=== PATIENT | female | born 1950 | race Caucasian/White ===

== ENCOUNTER 2018-07-12 20:28 | Emergency (ER) | payer MEDICARE, BC ==
[2018-07-12 21:08] LABS: #Eosinphils 0.3 thou/uL (0.0-0.7); #Lymphocytes 1.5 thou/uL (1.20-3.40); #Monocytes 0.4 thou/uL (0.11-0.59); #Neutrophils 3.4 thou/uL (1.40-6.50); %Basophils 0.4 % (0.0-1.0); %Eosinophils 5.5 % (0.0-10.0); %Lymphocytes 27.1 % (21.0-51.0); %Monocytes 6.4 % (0.0-10.0); %Neutrophils 60.6 % (42.0-75.0); Hemoglobin 13.6 g/dL (12.0-16.0); Mean Corpuscular HGB CONC 32.7 g/dL (32.0-36.0); Mean Corpuscular Volume 85.7 fL (78.0-98.0); Mean Platelet Volume 7.7 fL (7.4-10.4); Platelet Count 143 thou/uL (130-400); RBC Distribution Width 12.6 % (11.5-14.5); Red Blood Cell (RBC) Count 4.86 mill/uL (4.20-5.40); White Blood Cell (WBC) Count 5.6 thou/uL (4.8-10.8)
[2018-07-12 21:27] LABS: ALT (SGPT) 15 U/L (8-55); AST (SGOT) 20 U/L (5-34); Albumin 4.1 g/dL (3.4-4.8); Alkaline Phosphatase 64 U/L (40-150); Anion Gap 14 mmol/L (10-20); BUN (Urea Nitrogen) 18 mg/dL (9.8-20.1); Bilirubin, Total 0.6 mg/dL (0.2-1.2); Calc. Creatinine Clearance 0 mL/min (70-130); Calcium 9.7 mg/dL (7.8-10.44); Carbon Dioxide 27 mmol/L (23-31); Chloride 106 mmol/L (98-107); Estimated GFR-MDRD 48; Globulin 2.7 g/dL (2.4-3.5); Glucose 88 mg/dL (80-115); Potassium 3.4 mmol/L (3.5-5.1); Protein, Total 6.8 g/dL (6.0-8.3); Sodium 144 mmol/L (136-145)
--- NOTE | 2018-07-12 21:45 | CT ---
CT brain. Difficulty speaking. Noncontrast enhanced CT images of the brain obtained. Small areas of infarction seen in the right thalamus which appear to be old. No acute intracranial masses hemorrhages or strokes seen. There is abnormal density seen in the ethmoid and sphenoid sinuses. This may represent extensive sinu s disease. ENT consultation recommended. IMPRESSION: Ethmoid and sphenoid sinus disease.
[2018-07-12] MEDS ORDERED: Aspirin Chewable 81 MG TAB ONE (21:51)
[2018-07-12] MEDS ORDERED: Potassium Chloride 20 MEQ TAB ONE (21:51)
== END 2018-07-12 22:10 | disposition home or self-care (01) ==
LOC: NAV ERS 20:28
DX: G45.9 Transient cerebral ischemic attack, unspecified (principal); I10 Essential (primary) hypertension; E03.9 Hypothyroidism, unspecified
CPT/HCPCS: 36415; 36416; 70450; 80053; 84484; 85025; 93005; 94760

== ENCOUNTER 2018-07-20 10:35 | Emergency (ER) | payer MEDICARE, BC ==
--- NOTE | 2018-07-20 11:08 | CT ---
CT Brain WO Con: 07/20/2018 10:53 AM CLINICAL HISTORY: Dizziness and lightheadedness. IMAGING TECHNIQUE: Multiple CT images were obtained of the brain without IV contrast. COMPARISON: CT the brain dated July 12, 2018 FINDINGS: Infarct: There are remote lacunar infarcts involving the left globus pallidus and right thalamus. No acute infarct is demonstrated. Hemorrhage: None.. Hydrocephalus: None.. Basal cisterns: Normal.. Cerebral parenchyma: Normal.. Midline shift: None.. Cerebellum: Normal. Brainstem: Normal. OTHER: Calvarium: Intact.. Visualized Paranasal sinuses: There is marked mucosal thickening within the ethmoid air cells, spheno id sinus and visualized aspects of the left maxillary sinus that appears stable to the most recent comparison.. Extracranial soft tissues:Normal. IMPRESSION: 1. No acute intracranial abnormality. 2. Chronic ischemic change as above. 3. Significant ethmoid and sphenoid paranasal disease.
[2018-07-20 11:23] LABS: #Eosinphils 0.1 thou/uL (0.0-0.7); #Lymphocytes 1.3 thou/uL (1.20-3.40); #Monocytes 0.4 thou/uL (0.11-0.59); #Neutrophils 4.2 thou/uL (1.40-6.50); %Basophils 0.8 % (0.0-1.0); %Lymphocytes 22.1 % (21.0-51.0); %Monocytes 5.9 % (0.0-10.0); %Neutrophils 69.2 % (42.0-75.0); Hemoglobin 14.4 g/dL (12.0-16.0); Mean Corpuscular HGB CONC 32.4 g/dL (32.0-36.0); Mean Corpuscular Hemoglobin 27.8 pg (27.0-31.0); Mean Corpuscular Volume 85.8 fL (78.0-98.0); Mean Platelet Volume 8.7 fL (7.4-10.4); Platelet Count 166 thou/uL (130-400); RBC Distribution Width 12.8 % (11.5-14.5); Red Blood Cell (RBC) Count 5.18 mill/uL (4.20-5.40); White Blood Cell (WBC) Count 6.1 thou/uL (4.8-10.8)
[2018-07-20] MEDS ORDERED: Aspirin Chewable 81 MG TAB ONE ×2 (11:32→11:35)
[2018-07-20] MEDS ORDERED: Sodium Chloride 0.9% 1,000 ML ONE (11:32)
[2018-07-20 11:37] LABS: ALT (SGPT) 12 U/L (8-55); AST (SGOT) 19 U/L (5-34); Albumin 4.3 g/dL (3.4-4.8); Alkaline Phosphatase 66 U/L (40-150); Anion Gap 18 mmol/L (10-20); BUN (Urea Nitrogen) 21 mg/dL (9.8-20.1); Bilirubin, Total 0.7 mg/dL (0.2-1.2); Calc. Creatinine Clearance 0 mL/min (70-130); Calcium 9.7 mg/dL (7.8-10.44); Carbon Dioxide 26 mmol/L (23-31); Chloride 102 mmol/L (98-107); Estimated GFR-MDRD 25; Globulin 2.4 g/dL (2.4-3.5); Glucose 134 mg/dL (80-115); Potassium 3.6 mmol/L (3.5-5.1); Protein, Total 6.7 g/dL (6.0-8.3); Sodium 142 mmol/L (136-145)
--- NOTE | 2018-07-20 11:39 | RAD ---
RADIOGRAPH CHEST 1 VIEW: HISTORY: 68-year-old female with dyspnea. FINDINGS: There are no air space densities, pulmonary edema, pneumothorax, or cardiomegaly. The lateral costop hrenic angles are sharp. IMPRESSION: No acute cardiopulmonary findings. jn POS: TPC
[2018-07-20 12:05] LABS: Bilirubin Small (Negative); Blood, Urine Negative (Negative); Clarity Clear (Clear); Glucose, Urine (Dipstick) Negative (Negative); Leukocyte Trace (Negative); Nitrite Negative (Negative); Protein, Urine (Dipstick) 30 mg/dL (Neg-Trace); Specific Gravity, Urine 1.025 (1.005-1.030); Urobilinogen 0.2 mg/dL (0.2-1.0); pH, Urine 5.5 (5.0-9.0)
[2018-07-20 12:36] LABS: Bacteria/HPF Rare-Few HPF (None Seen); Crystals/HPF 1+ CA OXALATE HPF (Negative); RBC/HPF 0-3 HPF (0-3); WBC/HPF 0-3 HPF (0-3)
== END 2018-07-20 12:03 | disposition short-term general hospital (02) ==
LOC: NAV ERS 10:35
DX: R42 Dizziness and giddiness (principal); R53.1 Weakness; R94.31 Abnormal electrocardiogram [ECG] [EKG]; E03.9 Hypothyroidism, unspecified; I10 Essential (primary) hypertension; Z79.82 Long term (current) use of aspirin; Z79.899 Other long term (current) drug therapy
CPT/HCPCS: 70450; 71045; 80053; 81003; 81015; 83605; 84484; 85025; 93005; 94760; J7050

== ENCOUNTER 2018-09-25 15:27 | Emergency (ER) | payer MEDICARE ==
[~2018-09-25 15:27] MED LIST: Iopamidol 370 76% 100 ML VIAL ONE
[2018-09-25] MEDS ORDERED: Lorazepam 2 MG/ML VIAL ONE (15:33)
--- NOTE | 2018-09-25 15:59 | CT ---
EXAM: CT brain without contrast HISTORY: Altered mental status COMPARISON: 09/08/2018 TECHNIQUE: Multiple contiguous axial images were obtained and a CT of the brain without contrast. FINDINGS: There are scattered hypodensities in the subcortical and periventricular white matter consi stent with small vessel ischemic disease. There is no evidence of hydrocephalus, intracranial hemorrhage, or extra-axial fluid collection. The calvarium and overlying soft tissues are unremarkable. There is opacification of some of the ethm oid air cells. The mastoid air cells are well aerated. IMPRESSION: No evidence of acute intracranial abnormality
[2018-09-25 16:00] LABS: #Basophils 0.1 thou/uL (0.0-0.2); #Monocytes 0.4 thou/uL (0.11-0.59); #Neutrophils 9.6 thou/uL (1.40-6.50); %Basophils 0.6 % (0.0-1.0); %Eosinophils 0.1 % (0.0-10.0); %Lymphocytes 16.9 % (21.0-51.0); %Monocytes 3.5 % (0.0-10.0); Hemoglobin 13.2 g/dL (12.0-16.0); Mean Corpuscular HGB CONC 31.4 g/dL (32.0-36.0); Mean Corpuscular Hemoglobin 28.7 pg (27.0-31.0); Mean Corpuscular Volume 91.2 fL (78.0-98.0); Mean Platelet Volume 8.1 fL (7.4-10.4); Platelet Count 204 thou/uL (130-400); RBC Distribution Width 13.1 % (11.5-14.5); Red Blood Cell (RBC) Count 4.62 mill/uL (4.20-5.40); White Blood Cell (WBC) Count 12.1 thou/uL (4.8-10.8)
[2018-09-25 16:02] LABS: INR-International Normal Ratio 1.4; PTT 38.2 SEC (22.9-36.1); Prothrombin Time 17.3 SEC (12.0-14.7)
[2018-09-25 16:06] LABS: ALT (SGPT) 18 U/L (8-55); AST (SGOT) 19 U/L (5-34); Albumin 4.5 g/dL (3.4-4.8); Alkaline Phosphatase 65 U/L (40-150); Anion Gap 23 mmol/L (10-20); BUN (Urea Nitrogen) 44 mg/dL (9.8-20.1); Bilirubin, Total 0.9 mg/dL (0.2-1.2); Calc. Creatinine Clearance 0 mL/min (70-130); Calcium 10.6 mg/dL (7.8-10.44); Carbon Dioxide 19 mmol/L (23-31); Chloride 106 mmol/L (98-107); Estimated GFR-MDRD 29; Globulin 2.9 g/dL (2.4-3.5); Glucose 135 mg/dL (80-115); Potassium 4.2 mmol/L (3.5-5.1); Protein, Total 7.4 g/dL (6.0-8.3); Sodium 144 mmol/L (136-145)
--- NOTE | 2018-09-25 16:40 | CT ---
CTA Angio Head W WO Con W Perf History: Altered mental status Comparison: CT brain same day. MRI brain September 09, 2018 Findings: CT angiogram of the head and neck performed after the intravenous administration of contras t. 3-D rendering provided. Lung apices are clear. Small hypodensity posterior right lobe of the thyroid. Normal cervical spine alignment. Muscles: The vertebral arteries are codominant. Cervical vertebral arteries are patent. Right common carotid artery is patent. Per NASCET criteria no hemodynamically significant stenosis of the right internal carotid artery. The left common carotid artery is patent. Per NASCET criteria no hemodynamic significant stenosis of the internal carotid artery. [place] evaluation is limited due to the delayed phase of contrast. The posterior cerebral a rteries, middle cerebral arteries, and anterior cerebral arteries appear to be attenuated with beading. Age-indeterminate conclusion left A2 segment with adequate reconstitution of A3. Narrowed bi lateral middle cerebral arteries involving segments M1 and M2. Absence of the left P1 segment with contrast within the left P2-P3 segments. Impression: 1. Narrowed beaded [place] vessels including the posterior cerebral arteries, middle cerebra l arteries, anterior cerebral artery suggesting vasculitis. Conventional angiogram recommended. 2. Occluded left A2 segment with adequate peripheral vascular flow within A3. 3. Likely normal variant attenuated left P1 segment with P2 being fed by the posterior communicating artery. 4. Per NASCET criteria no hemodynamically significant stenosis within the internal carotid arteries. Code CR Dr. Yap
[2018-09-25 16:48] LABS: CK (CPK) 68 U/L (29-168)
[2018-09-25] MEDS ORDERED: Fosphenytoin Sodium 500 mg/10 ml Vial ONE ×2 (17:19→17:21)
[2018-09-25] MEDS ORDERED: Sodium Chloride 0.9% 100 ML ONE (17:26)
== END 2018-09-25 17:37 | disposition short-term general hospital (02) ==
LOC: NAV ERS 15:27
DX: I63.549 Cerebral infarction due to unspecified occlusion or stenosis of unspecified cerebellar artery (principal); R56.9 Unspecified convulsions; E03.9 Hypothyroidism, unspecified; Z86.73 Personal history of transient ischemic attack (TIA), and cerebral infarction without residual deficits; I10 Essential (primary) hypertension; Z79.82 Long term (current) use of aspirin; Z79.01 Long term (current) use of anticoagulants
CPT/HCPCS: 0042T; 36416; 70450; 70496; 70498; 80053; 82550; 84484; 85025; 85610; 85730; 93005; 96372; 96374; J2060; J3490; Q2009; Q9967

== ENCOUNTER 2018-09-28 17:10 | Inpatient (IN) | payer MEDICARE ==
[2018-09-28] MEDS ORDERED: Ondansetron ODT 4 MG TAB PO PRN (18:11)
[2018-09-28] MEDS ORDERED: Acetaminophen 325 MG TAB PO PRN (18:11)
[2018-09-28] MEDS ORDERED: cloNIDine 0.1 MG TAB PO PRN (18:18)
[2018-09-28] MEDS ORDERED: Loratadine 10 MG TAB PO PRN (18:32)
[2018-09-28] MEDS ORDERED: Senokot S 8.6-50 MG TAB PO PRN (18:32)
[2018-09-28] MEDS: Amlodipine 10 MG TAB PO SCH (20:28)
[2018-09-28] MEDS: Lisinopril 20 MG TAB PO SCH (20:28)
[2018-09-28] MEDS: levETIRAcetam 500 MG TAB PO SCH (20:29)
[2018-09-28] MEDS: Aggrenox 200-25mg CAP PO SCH (20:29)
[2018-09-28] MEDS: Apixaban 5 MG TAB PO SCH (20:29)
[2018-09-29 05:46] LABS: Anion Gap 13 mmol/L (10-20); BUN (Urea Nitrogen) 17 mg/dL (9.8-20.1); Calc. Creatinine Clearance 69 mL/min (70-130); Calcium 8.9 mg/dL (7.8-10.44); Carbon Dioxide 26 mmol/L (23-31); Chloride 108 mmol/L (98-107); Estimated GFR-MDRD 61; Glucose 77 mg/dL (80-115); Potassium 3.9 mmol/L (3.5-5.1); Sodium 143 mmol/L (136-145)
[2018-09-29 06:13] LABS: Thyroid Stimulating Hormone 2.4815 uIU/mL (0.35-4.94)
[2018-09-29 06:25] LABS: #Basophils 0.1 thou/uL (0.0-0.2); #Eosinphils 0.2 thou/uL (0.0-0.7); #Lymphocytes 1.3 thou/uL (1.20-3.40); #Monocytes 0.3 thou/uL (0.11-0.59); #Neutrophils 2.9 thou/uL (1.40-6.50); %Basophils 1.1 % (0.0-1.0); %Eosinophils 4.9 % (0.0-10.0); %Lymphocytes 26.8 % (21.0-51.0); %Monocytes 6.3 % (0.0-10.0); %Neutrophils 60.9 % (42.0-75.0); Hemoglobin 12.4 g/dL (12.0-16.0); Mean Corpuscular HGB CONC 32.7 g/dL (32.0-36.0); Mean Corpuscular Hemoglobin 28.7 pg (27.0-31.0); Mean Corpuscular Volume 87.7 fL (78.0-98.0); Mean Platelet Volume 9.2 fL (7.4-10.4); Platelet Count 114 thou/uL (130-400); RBC Distribution Width 12.4 % (11.5-14.5); Red Blood Cell (RBC) Count 4.31 mill/uL (4.20-5.40); White Blood Cell (WBC) Count 4.7 thou/uL (4.8-10.8)
[2018-09-29 06:33] LABS: Platelet Morphology Comment Appears Decreased
--- NOTE | 2018-09-29 09:01 | HP ---
SUBJECTIVE: The patient is a 68-year-old female with a past medical history of hypertension, hypothyroidism, hyperlipidemia with a recent CVA, who is readmitted to [facility] in [place] following seizures two days after being discharged from inpatient rehab. Couple of weeks ago, the patient suffered a stroke and then went to inpatient rehab with residual right-sided weakness, improved with therapy and was discharged home. She states that about two days after going home, she started becoming weak and then was shaking and found to have seizure-like activity. The patient had an MRI, which showed worsening of the left periventricular white matter infarctions. The patient was started on Keppra for seizures and began working with all therapy modalities. Speech Therapy saw the patient for some dysphagia, and she had a modified barium swallow today before being transferred to [place], which shows the need for continued speech therapy and nectar thick liquids with a regular texture diet. The patient is on Eliquis for anticoagulation and Aggrenox for the repeated stroke. The patient denies any other concerns at this time and is looking forward to beginning rehabilitation, so that she can transition back home. PAST MEDICAL HISTORY: 1. Hypertension. 2. Hyperlipidemia. 3. Hypothyroidism. 4. History of CVA. FAMILY HISTORY: Mother with history of hemorrhagic stroke. PAST SURGICAL HISTORY: 1. Appendectomy. 2. . 3. Hemorrhoidectomy. 4. Abdominal adhesion lysis. 5. Tonsillectomy. SOCIAL HISTORY: The patient denies tobacco, alcohol, or other drug use. MEDICATIONS: 1. Lisinopril 10 mg p.o. b.i.d. 2. Aggrenox 1 p.o. b.i.d. 3. B12 a 1000 mcg p.o. daily. 4. Keppra 500 mg p.o. b.i.d. 5. Clonidine 0.1 mg p.o. q.8 hours p.r.n. hypertension. 6. Atorvastatin 40 mg p.o. at bedtime. 7. Eliquis 5 mg p.o. b.i.d. 8. Amlodipine 10 mg p.o. daily. ALLERGIES: EGGS AND TDAP. REVIEW OF SYSTEMS: GENERAL: Negative for fever, chills, or night sweats. HEENT: Negative for sore throat, rhinorrhea, or nasal congestion. EYES: Negative for vision changes or eye pain. RESPIRATORY: Negative for cough, shortness of breath, or wheezing. CV: Negative for chest pain, palpitations, orthopnea, or PND. GI: Negative for nausea, vomiting, diarrhea, or constipation. : Negative for dysuria or polyuria. MUSCULOSKELETAL: Negative for joint pain or swelling. NEUROLOGIC: Negative for syncope and no new seizure since admission. PSYCHIATRIC: Negative for anxiety or depression. PHYSICAL EXAMINATION: VITAL SIGNS: Temp 98.2, pulse 69, respiration rate 18, O2 saturation 98% on room air, and blood pressure 134/69. GENERAL: The patient is awake, alert, oriented, in no acute distress. EYES: Pupils are equal, round, and reactive to light and accommodation, extraocular muscles intact. HEENT: Oropharynx and nasopharynx are without erythema or exudate. NECK: Supple without lymphadenopathy, thyromegaly, or bruits. CARDIOVASCULAR: Regular rate and rhythm without murmurs, gallops, or rubs. LUNGS: Clear to auscultation bilaterally without wheezing or rhonchi. ABDOMEN: Soft, nontender, nondistended. Bowel sounds present. EXTREMITIES: There is no clubbing, cyanosis, or edema. SKIN: Negative for jaundice or rashes. NEUROLOGIC: Cranial nerves 2 through 12 are grossly intact, deep tendon reflexes 2/4, and muscle strength appears to be 5/5 throughout all extremities. I am not able to appreciate the right-sided weakness that has been reported. PSYCHIATRIC: The patient displays appropriate mood and affect. LABORATORY DATA: Autoimmune panel shows an elevated thyroid peroxidase IgG at 162. ASSESSMENT AND PLAN: 1. Seizures: The patient will continue on Keppra. 2. Recent cerebrovascular accident: The patient will continue with speech therapy while at [facility]. PT and OT will be consulted. Continue Aggrenox and Eliquis. 3. Dysphagia: The patient is on nectar thick liquids and will continue to work with Therapy to see if diet can be advanced. 4. Hypertension: Continue home blood pressure medications. 5. Hypothyroidism: The patient is not currently on thyroid supplementation, but has an elevated thyroid peroxidase IgG. We will add a TSH and free T4 in the morning. 6. Hyperlipidemia: Continue lipid panel. 7. Deep venous thrombosis prophylaxis will be with Eliquis. Job ID: [id number] [facility]
[2018-09-29] MEDS: Lisinopril 20 MG TAB PO SCH ×2 (09:05→19:57)
[2018-09-29] MEDS: Multivitamin W/ Minerals 1 TAB PO SCH (09:05)
[2018-09-29] MEDS: Aggrenox 200-25mg CAP PO SCH ×2 (09:05→19:57)
[2018-09-29] MEDS: Cyanocobalamin (Vitamin B-12) 1,000 MCG TAB PO SCH (09:06)
[2018-09-29] MEDS: Atorvastatin Calcium 40 MG TAB PO SCH (09:06)
[2018-09-29] MEDS: levETIRAcetam 500 MG TAB PO SCH ×2 (09:06→19:57)
[2018-09-29] MEDS: Apixaban 5 MG TAB PO SCH ×2 (09:06→19:56)
[2018-09-29 12:34] LABS: Free T4 (Free Thyroxine) 0.89 ng/dL (0.70-1.48)
[2018-09-29] MEDS: Amlodipine 10 MG TAB PO SCH (19:56)
--- NOTE | 2018-09-30 08:47 | PRG ---
DATE OF SERVICE: 09/30/2018 SUBJECTIVE: The patient is a 68-year-old female, who is transferred to [place] for rehabilitation following a hospital stay for seizure activity, following a recent stroke. The patient states that her right lower extremity weakness seems to be improved. She has had no seizure since starting Keppra about a week ago. The patient notes her appetite is improving. OBJECTIVE: VITAL SIGNS: Temperature 98.2, pulse 80, respiration rate 16, O2 saturation 99% on room air, and blood pressure 139/63. GENERAL: The patient is awake, alert, oriented, in no acute distress. CARDIOVASCULAR: Regular rate and rhythm without murmurs, gallops, or rubs. LUNGS: Clear to auscultation bilaterally without wheezing or rhonchi. ABDOMEN: Soft, nontender, nondistended with bowel sounds present. EXTREMITIES: There is no clubbing, cyanosis, or edema. MUSCULOSKELETAL: The patient has full range of motion of all extremities and strength appears to be a 5/5. LABORATORY DATA: 1. CBC: WBCs 4.7, hemoglobin 12.4, hematocrit 37.8, and platelet count 114. 2. BMP: Sodium 143, potassium 3.9, chloride 108, bicarb 26, BUN 17, creatinine 0.92, glucose 77, and calcium 8.9. 3. Free T4 is 0.89 and TSH is 2.48. ASSESSMENT AND PLAN: 1. Seizures: We will continue Keppra. 2. Cerebrovascular accident: We will continue Eliquis and Aggrenox. The patient will continue to work with therapy services. 3. Dysphagia: The patient has nectar thick liquids, and speech therapy has been consulted. 4. Hypertension: Blood pressure is controlled. 5. Hyperlipidemia: Continue statin. 6. Hypothyroidism: The patient's TSH and T4 within the normal range. We will not start medication at this time. Job ID: [id number]
[2018-09-30] MEDS: Cyanocobalamin (Vitamin B-12) 1,000 MCG TAB PO SCH (08:50)
[2018-09-30] MEDS: Atorvastatin Calcium 40 MG TAB PO SCH (08:50)
[2018-09-30] MEDS: Lisinopril 20 MG TAB PO SCH ×2 (08:50→20:46)
[2018-09-30] MEDS: Aggrenox 200-25mg CAP PO SCH ×2 (08:50→20:46)
[2018-09-30] MEDS: levETIRAcetam 500 MG TAB PO SCH ×2 (08:50→20:45)
[2018-09-30] MEDS: Multivitamin W/ Minerals 1 TAB PO SCH (08:50)
[2018-09-30] MEDS: Apixaban 5 MG TAB PO SCH ×2 (08:50→20:45)
[2018-09-30] MEDS: Amlodipine 10 MG TAB PO SCH (20:45)
[2018-10-01] MEDS: Apixaban 5 MG TAB PO SCH ×2 (09:25→21:47)
[2018-10-01] MEDS: Aggrenox 200-25mg CAP PO SCH ×2 (09:25→21:46)
[2018-10-01] MEDS: Multivitamin W/ Minerals 1 TAB PO SCH (09:25)
[2018-10-01] MEDS: Cyanocobalamin (Vitamin B-12) 1,000 MCG TAB PO SCH (09:25)
[2018-10-01] MEDS: Lisinopril 20 MG TAB PO SCH ×2 (09:25→21:46)
[2018-10-01] MEDS: levETIRAcetam 500 MG TAB PO SCH ×2 (09:26→21:46)
[2018-10-01] MEDS: Atorvastatin Calcium 40 MG TAB PO SCH (09:26)
--- NOTE | 2018-10-01 11:38 | PRG ---
DATE OF SERVICE: 10/01/2018 SUBJECTIVE: The patient is a 68-year-old female, undergoing rehabilitation following hospitalization for stroke and seizure. The patient is working with therapy and per report, she is still a little bit unsteady with ambulation. She denies any other complaints this morning. OBJECTIVE: VITAL SIGNS: Temperature 98.2, pulse 73, respiratory rate 18, O2 saturation 96% on room air, and blood pressure 131/71. GENERAL: The patient is awake, alert, oriented, in no acute distress. CARDIOVASCULAR: Regular rate and rhythm without murmurs, gallops, rubs. LUNGS: Clear to auscultation bilaterally without wheezing or rhonchi. ABDOMEN: Soft, nontender, nondistended. Bowel sounds present. EXTREMITIES: There is no clubbing, cyanosis, or edema. PSYCHIATRIC: The patient displays somewhat flat affect this morning, but with good recall. ASSESSMENT AND PLAN: 1. Seizure disorder with deconditioning: We will continue PT and OT to improve strength and balance. 2. Seizure disorder: Continue Keppra. 3. Dysphagia: Continue with nectar thick liquids and work with speech therapy. 4. Hypertension. Blood pressure is well controlled. 5. Hyperlipidemia. Continue statin. Job ID: [id number]
[2018-10-01] MEDS: Amlodipine 10 MG TAB PO SCH (21:47)
[2018-10-02] MEDS: Lisinopril 20 MG TAB PO SCH ×2 (08:51→20:21)
[2018-10-02] MEDS: Atorvastatin Calcium 40 MG TAB PO SCH (08:51)
[2018-10-02] MEDS: Cyanocobalamin (Vitamin B-12) 1,000 MCG TAB PO SCH (08:51)
[2018-10-02] MEDS: Apixaban 5 MG TAB PO SCH ×2 (08:51→20:21)
[2018-10-02] MEDS: Aggrenox 200-25mg CAP PO SCH ×2 (08:51→20:21)
[2018-10-02] MEDS: levETIRAcetam 500 MG TAB PO SCH ×2 (08:51→20:21)
[2018-10-02] MEDS: Multivitamin W/ Minerals 1 TAB PO SCH (08:52)
[2018-10-02] MEDS: Amlodipine 10 MG TAB PO SCH (20:21)
[2018-10-03] MEDS: Aggrenox 200-25mg CAP PO SCH ×2 (08:37→21:08)
[2018-10-03] MEDS: Apixaban 5 MG TAB PO SCH ×2 (08:37→21:08)
[2018-10-03] MEDS: Lisinopril 20 MG TAB PO SCH ×2 (08:38→21:08)
[2018-10-03] MEDS: levETIRAcetam 500 MG TAB PO SCH ×2 (08:38→21:08)
[2018-10-03] MEDS: Cyanocobalamin (Vitamin B-12) 1,000 MCG TAB PO SCH (08:38)
[2018-10-03] MEDS: Atorvastatin Calcium 40 MG TAB PO SCH (08:38)
[2018-10-03] MEDS: Multivitamin W/ Minerals 1 TAB PO SCH (08:39)
[2018-10-03] MEDS: Amlodipine 10 MG TAB PO SCH (21:08)
[2018-10-04] MEDS: Cyanocobalamin (Vitamin B-12) 1,000 MCG TAB PO SCH (08:49)
[2018-10-04] MEDS: Apixaban 5 MG TAB PO SCH ×2 (08:49→20:22)
[2018-10-04] MEDS: Aggrenox 200-25mg CAP PO SCH ×2 (08:49→20:22)
[2018-10-04] MEDS: Multivitamin W/ Minerals 1 TAB PO SCH (08:49)
[2018-10-04] MEDS: levETIRAcetam 500 MG TAB PO SCH ×2 (08:49→20:22)
[2018-10-04] MEDS: Atorvastatin Calcium 40 MG TAB PO SCH (08:50)
[2018-10-04] MEDS: Lisinopril 20 MG TAB PO SCH ×2 (08:50→20:22)
--- NOTE | 2018-10-04 17:51 | PRG ---
DATE OF SERVICE: 10/04/2018 SUBJECTIVE: The patient is a 68-year-old female at [facility] for rehabilitation following recent strokes and seizures. The patient states that she went outside with a friend yesterday and her right leg seemed to give out after walking on it for a little bit. The patient's daughter is in town from [place], and I have a discussion with her today regarding goals of care and what her mom might need upon discharge from this facility. OBJECTIVE: VITAL SIGNS: Temperature 98.1, pulse 62, respiratory rate 16, O2 saturation 96% on room air, and blood pressure 113/59. GENERAL: The patient is awake, alert, and oriented, in no acute distress. CARDIOVASCULAR: Regular rate and rhythm without murmurs, gallops, or rubs. LUNGS: Clear to auscultation bilaterally without wheezing or rhonchi. ABDOMEN: Soft, nontender, and nondistended with bowel sounds present. EXTREMITIES: There is no clubbing, cyanosis, or edema. PSYCHIATRIC: The patient displays appropriate mood and affect. ASSESSMENT AND PLAN: 1. Recent cerebrovascular accident: The patient will continue physical therapy and occupational therapy to help improve strength and balance. I will discuss discharge planning with the therapy staff and try to help coordinate with the patient's daughter on a good safe plan and what they think she will need for care. 2. Seizure disorder: Continue Keppra. 3. Dysphagia: Continue nectar thick liquids and continue to work with Speech Therapy. 4. Hypertension: Stable this morning. 5. Hyperlipidemia: Continue statin. Job ID: [id number]
[2018-10-04] MEDS: Amlodipine 5 MG TAB PO SCH (20:21)
[2018-10-05] MEDS: Lisinopril 20 MG TAB PO SCH ×2 (10:21→20:35)
[2018-10-05] MEDS: Aggrenox 200-25mg CAP PO SCH ×2 (10:21→20:35)
[2018-10-05] MEDS: Cyanocobalamin (Vitamin B-12) 1,000 MCG TAB PO SCH (10:21)
[2018-10-05] MEDS: Multivitamin W/ Minerals 1 TAB PO SCH (10:21)
[2018-10-05] MEDS: Atorvastatin Calcium 20 MG TAB PO SCH (10:21)
[2018-10-05] MEDS: Apixaban 5 MG TAB PO SCH ×2 (10:21→20:35)
[2018-10-05] MEDS: levETIRAcetam 500 MG TAB PO SCH ×2 (10:22→20:35)
--- NOTE | 2018-10-05 12:10 | PRG ---
DATE OF SERVICE: 10/05/2018 SUBJECTIVE: The patient is a 68-year-old female undergoing rehabilitation following multiple recent strokes and seizures. The patient states that her right leg seems to be a little bit stronger today than it was yesterday. The patient' s daughter and son are both at the bedside and had multiple questions about the patient's disease process. The patient denies any additional complaints this morning. OBJECTIVE: VITAL SIGNS: Temperature 97.8, pulse 70, respiratory rate 18, O2 saturation 97% on room air, and blood pressure 117/66. GENERAL: The patient is awake, alert, and oriented, in no acute distress. CARDIOVASCULAR: Regular rate and rhythm without murmurs, gallops, or rubs. LUNGS: Clear to auscultation bilaterally without wheezing or rhonchi. ABDOMEN: Soft, nontender, nondistended. Bowel sounds present. EXTREMITIES: No clubbing, cyanosis, or edema. PSYCHIATRIC: The patient displays appropriate mood and affect, though she does become easily distracted when we are talking about things in the room. ASSESSMENT AND PLAN: 1. Cerebrovascular accident: The patient will continue PT and OT to help improve strength and safety with ambulation and transferring. 2. Seizures: We will continue Keppra and seizure precautions were in place. 3. Hypertension: Blood pressures remained well controlled. 4. Hyperlipidemia. Continue statin. 5. Dysphagia: Continue working with speech therapy. The patient is currently on a diet with nectar thick liquids. 6. Approximately 37 minutes was spent in [id number] counseling with the patient and patient's family member discussing her clinical course as well as strokes that she has had in the past month with the expected course of recovery would be as well as talking about discharge planning. Therapy expects that the patient likely needs another week of therapy to help with strength and safety. Job ID: [id number] MTDD
[2018-10-05] MEDS: Amlodipine 5 MG TAB PO SCH (20:35)
[2018-10-06] MEDS: Aggrenox 200-25mg CAP PO SCH ×2 (08:33→20:07)
[2018-10-06] MEDS: Apixaban 5 MG TAB PO SCH ×2 (08:33→20:07)
[2018-10-06] MEDS: levETIRAcetam 500 MG TAB PO SCH ×2 (08:34→20:07)
[2018-10-06] MEDS: Multivitamin W/ Minerals 1 TAB PO SCH (08:34)
[2018-10-06] MEDS: Lisinopril 20 MG TAB PO SCH ×2 (08:34→20:07)
[2018-10-06] MEDS: Cyanocobalamin (Vitamin B-12) 1,000 MCG TAB PO SCH (08:34)
[2018-10-06] MEDS: Atorvastatin Calcium 20 MG TAB PO SCH (08:34)
--- NOTE | 2018-10-06 12:48 | PRG ---
DATE OF SERVICE: 10/06/2018 SUBJECTIVE: The patient is a 68-year-old female, who is here for rehabilitation following strokes and seizure. This morning, the patient woke up and was her normal self and then after undergoing a shower, when she was beginning to work with therapy, her right leg seemed to give out and just became significantly weaker. This lasted for a short period of time and then, her strength returned to her. Her vitals were stable during that time. She denies headache, blurry vision, new numbness, or tingling. The patient is wanting to go out today with her daughter, who is in town from [place] to go to the [employer], so that her daughter can get on her account to help pay her bills. OBJECTIVE: VITAL SIGNS: Temperature 98.2, pulse 68, respiration rate 16, O2 saturation 97% on room air, and blood pressure 131/60. GENERAL: The patient is awake, alert, and oriented, in no acute distress. CARDIOVASCULAR: Regular rate and rhythm without murmurs, gallops, or rubs. LUNGS: Clear to auscultation bilaterally without wheezing or rhonchi. ABDOMEN: Soft, nontender, and nondistended. Bowel sounds present. EXTREMITIES: There was no clubbing, cyanosis, or edema. MUSCULOSKELETAL: The patient has 5/5 strength in bilateral lower extremities, though she admits that it was much weaker this morning. NEUROLOGIC: No new deficits. Cranial nerves 2 through 12 are grossly intact. Sensation is within normal limits. ASSESSMENT AND PLAN: 1. Cerebrovascular accident with new onset transient weakness this morning: We will continue Therapy Services. The patient's vitals are stable and her strength is now back to her baseline. 2. Seizure disorder: Continue Keppra. 3. Hypertension: Well controlled. Continue current medications. 4. Hyperlipidemia: Continue statin. 5. Dysphagia: Continue speech therapy and nectar thick liquids. 6. I have had a long conversation with the patient regarding going out on pass. We do have concern with weakness this morning, where that to happen when she is out of the facility, she could fall and suffer another injury. The patient voices understanding. The patient's daughter is leaving tomorrow to go back home to [place] and so I understand the need to go sign paperwork at the [employer]. The patient agrees to go via wheelchair and not attempt ambulation, which she thinks will be the safer route. We have discussed the risk of her weakness happening again while about and the patient understands this, but still desires to go out. Job ID: [id number]
[2018-10-06] MEDS: Amlodipine 5 MG TAB PO SCH (20:07)
[2018-10-07 05:39] LABS: #Basophils 0.1 thou/uL (0.0-0.2); #Eosinphils 0.1 thou/uL (0.0-0.7); #Lymphocytes 1.5 thou/uL (1.20-3.40); #Monocytes 0.5 thou/uL (0.11-0.59); #Neutrophils 3.3 thou/uL (1.40-6.50); %Basophils 1.1 % (0.0-1.0); %Eosinophils 2.6 % (0.0-10.0); %Lymphocytes 27.8 % (21.0-51.0); %Monocytes 8.3 % (0.0-10.0); %Neutrophils 60.2 % (42.0-75.0); Hemoglobin 11.8 g/dL (12.0-16.0); Mean Corpuscular HGB CONC 33.8 g/dL (32.0-36.0); Mean Corpuscular Hemoglobin 29.1 pg (27.0-31.0); Mean Corpuscular Volume 86.1 fL (78.0-98.0); Mean Platelet Volume 8.3 fL (7.4-10.4); Platelet Count 135 thou/uL (130-400); RBC Distribution Width 12.2 % (11.5-14.5); Red Blood Cell (RBC) Count 4.05 mill/uL (4.20-5.40); White Blood Cell (WBC) Count 5.5 thou/uL (4.8-10.8)
[2018-10-07 05:57] LABS: Anion Gap 12 mmol/L (10-20); BUN (Urea Nitrogen) 30 mg/dL (9.8-20.1); Calc. Creatinine Clearance 59 mL/min (70-130); Calcium 9.2 mg/dL (7.8-10.44); Carbon Dioxide 28 mmol/L (23-31); Chloride 106 mmol/L (98-107); Estimated GFR-MDRD 51; Glucose 88 mg/dL (80-115); Potassium 4.3 mmol/L (3.5-5.1); Sodium 142 mmol/L (136-145)
[2018-10-07] MEDS: Aggrenox 200-25mg CAP PO SCH ×2 (08:40→20:16)
[2018-10-07] MEDS: levETIRAcetam 500 MG TAB PO SCH ×2 (08:40→20:16)
[2018-10-07] MEDS: Cyanocobalamin (Vitamin B-12) 1,000 MCG TAB PO SCH (08:40)
[2018-10-07] MEDS: Atorvastatin Calcium 40 MG TAB PO SCH (08:40)
[2018-10-07] MEDS: Lisinopril 20 MG TAB PO SCH ×2 (08:40→20:17)
[2018-10-07] MEDS: Apixaban 5 MG TAB PO SCH ×2 (08:40→20:16)
[2018-10-07] MEDS: Multivitamin W/ Minerals 1 TAB PO SCH (08:41)
--- NOTE | 2018-10-07 10:07 | PRG ---
DATE OF SERVICE: 10/07/2018 SUBJECTIVE: The patient is a 68-year-old female, undergoing rehabilitation following multiple strokes and a seizure. The patient was able to go out with her daughter via wheelchair yesterday to the bank to get some affairs in order. She states she has had a good night and denies new weakness this morning. OBJECTIVE: VITAL SIGNS: Temperature 98.2, pulse 75, respiratory rate 16, O2 saturation 98% on room air, and blood pressure 99/60. GENERAL: The patient is awake, alert, oriented, in no acute distress. CARDIOVASCULAR: Regular rate and rhythm without murmurs, gallops, or rubs. NECK: Negative for carotid bruits. NEUROLOGIC: The patient has full range of motion of all extremities, and muscle strength is a 5/5 in upper and lower extremities. PSYCHIATRIC: The patient displays appropriate mood and affect, and she is not having difficulty with word finding today. LABORATORY DATA: CBC: WBCs 5.5, hemoglobin 11.8, hematocrit 34.9, and platelet count 135. BMP: Sodium 142, potassium 4.3, chloride 106, bicarb 28, BUN 30, creatinine 1.07, glucose 88, and calcium 9.2. ASSESSMENT AND PLAN: 1. Cerebrovascular accident: The patient will continue PT and OT. She remains on Aggrenox and Eliquis for the history of the embolic strokes. She does have a LINQ recorder in place and will need outpatient followup with Cardiology when she finishes her rehab. 2. Seizures: Continue Keppra. 3. Hypertension: Blood pressure is well controlled. 4. Hyperlipidemia: Continue statin. 5. Dysphagia: The patient continues to work with Speech Therapy and so requires nectar thick liquids at this time. 6. Disposition and planning: It was thought that the patient needs an additional week of therapy at this point in time. She will likely go home with home health when that time comes. Job ID: [id number]
[2018-10-07] MEDS: Amlodipine 5 MG TAB PO SCH (20:16)
[2018-10-08] MEDS: Aggrenox 200-25mg CAP PO SCH ×2 (08:42→20:54)
[2018-10-08] MEDS: Atorvastatin Calcium 40 MG TAB PO SCH (08:42)
[2018-10-08] MEDS: Cyanocobalamin (Vitamin B-12) 1,000 MCG TAB PO SCH (08:42)
[2018-10-08] MEDS: Lisinopril 20 MG TAB PO SCH ×2 (08:43→20:54)
[2018-10-08] MEDS: Multivitamin W/ Minerals 1 TAB PO SCH (08:43)
[2018-10-08] MEDS: levETIRAcetam 500 MG TAB PO SCH ×2 (08:43→20:54)
[2018-10-08] MEDS: Apixaban 5 MG TAB PO SCH ×2 (08:43→20:54)
[2018-10-08] MEDS: Amlodipine 5 MG TAB PO SCH (20:53)
[2018-10-09] MEDS: Aggrenox 200-25mg CAP PO SCH ×2 (08:20→20:14)
[2018-10-09] MEDS: Atorvastatin Calcium 40 MG TAB PO SCH (08:20)
[2018-10-09] MEDS: Cyanocobalamin (Vitamin B-12) 1,000 MCG TAB PO SCH (08:20)
[2018-10-09] MEDS: Apixaban 5 MG TAB PO SCH ×2 (08:21→20:15)
[2018-10-09] MEDS: Lisinopril 20 MG TAB PO SCH ×2 (08:21→20:15)
[2018-10-09] MEDS: levETIRAcetam 500 MG TAB PO SCH ×2 (08:21→20:16)
[2018-10-09] MEDS: Multivitamin W/ Minerals 1 TAB PO SCH (08:21)
[2018-10-09] MEDS: Amlodipine 5 MG TAB PO SCH (20:14)
[2018-10-10] MEDS: levETIRAcetam 500 MG TAB PO SCH ×2 (09:45→20:00)
[2018-10-10] MEDS: Atorvastatin Calcium 40 MG TAB PO SCH (09:45)
[2018-10-10] MEDS: Cyanocobalamin (Vitamin B-12) 1,000 MCG TAB PO SCH (09:45)
[2018-10-10] MEDS: Aggrenox 200-25mg CAP PO SCH ×2 (09:45→20:01)
[2018-10-10] MEDS: Apixaban 5 MG TAB PO SCH ×2 (09:45→20:01)
[2018-10-10] MEDS: Lisinopril 20 MG TAB PO SCH ×2 (09:45→20:00)
[2018-10-10] MEDS: Multivitamin W/ Minerals 1 TAB PO SCH (09:45)
[2018-10-10] MEDS: Amlodipine 5 MG TAB PO SCH (20:01)
[2018-10-11] MEDS: Apixaban 5 MG TAB PO SCH ×2 (08:25→20:25)
[2018-10-11] MEDS: Cyanocobalamin (Vitamin B-12) 1,000 MCG TAB PO SCH (08:25)
[2018-10-11] MEDS: Lisinopril 20 MG TAB PO SCH ×2 (08:25→20:24)
[2018-10-11] MEDS: Atorvastatin Calcium 40 MG TAB PO SCH (08:25)
[2018-10-11] MEDS: levETIRAcetam 500 MG TAB PO SCH ×2 (08:25→20:25)
[2018-10-11] MEDS: Aggrenox 200-25mg CAP PO SCH ×2 (08:25→20:25)
[2018-10-11] MEDS: Multivitamin W/ Minerals 1 TAB PO SCH (08:26)
--- NOTE | 2018-10-11 19:15 | PRG ---
DATE OF SERVICE: 10/11/2018 SUBJECTIVE: The patient is a 68-year-old female, who is undergoing rehabilitation following seizure and stroke. The patient states that she has had some variable right lower extremity weakness throughout the weekend. Her leg is also pretty strong, at times when she will get up to move and then her right leg gives out on her. This morning, she was sitting out of the door fully, pressing her wheelchair ready for the Physical Therapy to work with her this morning. Speech Therapy has upgraded her to clear liquids and she is no longer needing thickener. OBJECTIVE: VITAL SIGNS: Temperature 97.9, pulse 71, respiratory rate 16, O2 saturation 98% on room air, blood pressure 122/66. GENERAL: The patient is awake, alert, oriented, and in no acute distress. CARDIOVASCULAR: Regular rate and rhythm without murmurs, gallops, or rubs. LUNGS: Clear to auscultation bilaterally without wheezing or rhonchi. ABDOMEN: Soft, nontender, nondistended. Bowel sounds present. EXTREMITIES: No clubbing, cyanosis, or edema. ASSESSMENT AND PLAN: 1. Cerebrovascular accident. The patient continues to have variable right lower extremity weakness. She is looking forward to work with therapy and is participating as instructed. 2. Seizures. The patient is seizure-free on her Keppra. 3. Dysphagia. The patient's diet has been upgraded to clear liquids. 4. Hypertension. Blood pressure is controlled. 5. Hyperlipidemia. Continue statin. Job ID: [id number]
[2018-10-11] MEDS: Amlodipine 5 MG TAB PO SCH (20:24)
[2018-10-12] MEDS: Apixaban 5 MG TAB PO SCH ×2 (08:35→20:42)
[2018-10-12] MEDS: Aggrenox 200-25mg CAP PO SCH ×2 (08:35→20:42)
[2018-10-12] MEDS: Atorvastatin Calcium 40 MG TAB PO SCH (08:35)
[2018-10-12] MEDS: Cyanocobalamin (Vitamin B-12) 1,000 MCG TAB PO SCH (08:35)
[2018-10-12] MEDS: Lisinopril 20 MG TAB PO SCH ×2 (08:36→20:43)
[2018-10-12] MEDS: Multivitamin W/ Minerals 1 TAB PO SCH (08:36)
[2018-10-12] MEDS: levETIRAcetam 500 MG TAB PO SCH ×2 (08:36→20:43)
--- NOTE | 2018-10-12 12:29 | PRG ---
DATE OF SERVICE: 10/12/2018 SUBJECTIVE: The patient is a 68-year-old female, undergoing rehabilitation following a recent stroke and seizure. Yesterday, the patient had an episode where she again felt right-sided weakness and numbness, which only lasted for a few minutes and then went away. Her blood pressure was noted to be 92/55 at that time, but it resolved within just a few minutes. This morning, the patient states that her right upper and lower extremities feel stronger. Problem is she does not know when this will come on. She is about to begin working with therapy again today. I spoke with them and they are recommending that the patient go home with somebody to be with her. We will ask Case Management to help with the patient's discharge planning. OBJECTIVE: VITAL SIGNS: Temperature 98.7, pulse 83, respiration rate 18, O2 saturation 96% on room air, blood pressure 110/59. GENERAL: The patient is awake, alert, oriented, and in no acute distress. CARDIOVASCULAR: Regular rate and rhythm without murmurs, gallops, or rubs. LUNGS: Clear to auscultation bilaterally without wheezing or rhonchi. ABDOMEN: Soft, nontender, nondistended with bowel sounds present. NEUROLOGIC: Cranial nerves 2 through 12 are grossly intact. Upper and lower extremity strength is 5/5 bilaterally. PSYCHIATRIC: The patient displays appropriate mood and affect. ASSESSMENT AND PLAN: 1. Cerebrovascular accident: The patient with persistent intermittent right-sided weakness. We will continue therapy and we will work on discharge planning. 2. Seizure disorder: Continue Keppra. 3. Hypertension: Well controlled. 4. Hyperlipidemia. Continue statin. 5. Dysphagia: Diet has been upgraded. Job ID: [id number]
[2018-10-12] MEDS: Amlodipine 5 MG TAB PO SCH (20:43)
[2018-10-13] MEDS: levETIRAcetam 500 MG TAB PO SCH ×2 (08:45→20:10)
[2018-10-13] MEDS: Aggrenox 200-25mg CAP PO SCH ×2 (08:45→20:10)
[2018-10-13] MEDS: Multivitamin W/ Minerals 1 TAB PO SCH (08:45)
[2018-10-13] MEDS: Apixaban 5 MG TAB PO SCH ×2 (08:45→20:10)
[2018-10-13] MEDS: Cyanocobalamin (Vitamin B-12) 1,000 MCG TAB PO SCH (08:45)
[2018-10-13] MEDS: Lisinopril 20 MG TAB PO SCH ×2 (08:45→20:10)
[2018-10-13] MEDS: Atorvastatin Calcium 40 MG TAB PO SCH (08:45)
--- NOTE | 2018-10-13 17:36 | PRG ---
DATE OF SERVICE: 10/13/2018 SUBJECTIVE: The patient is a 68-year-old female, undergoing rehabilitation following strokes and seizure. The patient states that she has had no new weakness episodes since I last saw her. She states her right lower extremity feels very strong. OBJECTIVE: VITAL SIGNS: Temperature , pulse 84, respiration rate 20, O2 saturation 99% on room air, and blood pressure 112/55. GENERAL: The patient is awake, alert, and oriented, in no acute distress. CARDIOVASCULAR: Regular rate and rhythm without murmurs, gallops, or rubs. LUNGS: Clear to auscultation bilaterally without wheezing or rhonchi. ABDOMEN: Soft, nontender, and nondistended. Bowel sounds are present. EXTREMITIES: There is no clubbing, cyanosis, edema. NEUROLOGIC: Sensation is within normal limits. Muscle strength is 5/5 bilaterally in upper and lower extremities. ASSESSMENT AND PLAN: 1. Cerebrovascular accident: The patient's strength is good today. She continues to work with PT and OT. She is on all appropriate medications including Aggrenox, Eliquis, and statin, and her blood pressure is well controlled. 2. Seizure disorder: Continue Keppra. She has had no new seizures while here. 3. Hypertension: Blood pressure remains well controlled. 4. Hyperlipidemia: Continue statin. 5. Disposition: The family is working on discharge planning. The patient has difficulty remembering safety cues and therapy feels like she will need to have somebody with her at all times when she goes home. I have spoken with multiple family members over the past week to discuss her medical history and course. Job ID: [id number]
[2018-10-13] MEDS: Amlodipine 5 MG TAB PO SCH (20:09)
[2018-10-14] MEDS: Atorvastatin Calcium 40 MG TAB PO SCH (09:01)
[2018-10-14] MEDS: Apixaban 5 MG TAB PO SCH ×2 (09:01→20:02)
[2018-10-14] MEDS: Lisinopril 20 MG TAB PO SCH ×2 (09:01→20:02)
[2018-10-14] MEDS: Aggrenox 200-25mg CAP PO SCH ×2 (09:01→20:02)
[2018-10-14] MEDS: levETIRAcetam 500 MG TAB PO SCH ×2 (09:01→20:04)
[2018-10-14] MEDS: Cyanocobalamin (Vitamin B-12) 1,000 MCG TAB PO SCH (09:01)
[2018-10-14] MEDS: Multivitamin W/ Minerals 1 TAB PO SCH (09:01)
--- NOTE | 2018-10-14 13:04 | PRG ---
DATE OF SERVICE: 10/14/2018 SUBJECTIVE: The patient is a 68-year-old female, undergoing rehabilitation following strokes and seizure. The patient states she had a really good night and that she has had no new leg weakness or "spells" in the past 48 hours. She is eating well and is in good spirits. OBJECTIVE: VITAL SIGNS: Temperature 98.1, pulse 66, respiration rate 16, O2 saturation 98% on room air, blood pressure 104/62. GENERAL: The patient is awake, alert, oriented, in no acute distress. CARDIOVASCULAR: Regular rate and rhythm without murmurs, gallops, or rubs. LUNGS: Clear to auscultation bilaterally without wheezing or rhonchi. ABDOMEN: Soft, nontender, nondistended. Bowel sounds present. EXTREMITIES: There is no clubbing, cyanosis, or edema. NEUROLOGIC: Sensation is within normal limits and strength is 5/5 bilaterally. PSYCHIATRIC: The patient displays an appropriate mood and affect. ASSESSMENT AND PLAN: 1. Cerebrovascular accident: Continue PT and OT. We are working toward discharge planning, hopefully in the next week or so, so that the patient will be safe. She does still have trouble remembering her safety cues and often gets up out of bed without letting the nursing staff know despite repeated reminders not to get up on her own. It is some of this behavior that makes us think that the patient would be safer if she has somebody with her when she goes home. 2. Seizures: Continue Keppra. She has not had a seizure since being at [facility]. 3. Hypertension: Well controlled. 4. Hyperlipidemia: Stable. 5. We will get labs in the morning. Job ID: [id number]
[2018-10-14] MEDS: Amlodipine 5 MG TAB PO SCH (20:02)
[2018-10-15 05:23] LABS: #Eosinphils 0.2 thou/uL (0.0-0.7); #Lymphocytes 1.3 thou/uL (1.20-3.40); #Monocytes 0.3 thou/uL (0.11-0.59); #Neutrophils 2.7 thou/uL (1.40-6.50); %Eosinophils 3.3 % (0.0-10.0); %Lymphocytes 29.5 % (21.0-51.0); %Monocytes 6.7 % (0.0-10.0); %Neutrophils 59.4 % (42.0-75.0); Hemoglobin 11.7 g/dL (12.0-16.0); Mean Corpuscular HGB CONC 33.1 g/dL (32.0-36.0); Mean Corpuscular Volume 87.5 fL (78.0-98.0); Mean Platelet Volume 9.7 fL (7.4-10.4); Platelet Count 127 thou/uL (130-400); RBC Distribution Width 12.4 % (11.5-14.5); Red Blood Cell (RBC) Count 4.02 mill/uL (4.20-5.40); White Blood Cell (WBC) Count 4.6 thou/uL (4.8-10.8)
[2018-10-15 05:38] LABS: Anion Gap 14 mmol/L (10-20); BUN (Urea Nitrogen) 21 mg/dL (9.8-20.1); Calc. Creatinine Clearance 56 mL/min (70-130); Calcium 9.3 mg/dL (7.8-10.44); Carbon Dioxide 27 mmol/L (23-31); Chloride 106 mmol/L (98-107); Estimated GFR-MDRD 48; Glucose 85 mg/dL (80-115); Potassium 4.5 mmol/L (3.5-5.1); Sodium 142 mmol/L (136-145)
[2018-10-15] MEDS: levETIRAcetam 500 MG TAB PO SCH ×2 (09:15→19:51)
[2018-10-15] MEDS: Atorvastatin Calcium 40 MG TAB PO SCH (09:15)
[2018-10-15] MEDS: Aggrenox 200-25mg CAP PO SCH ×2 (09:15→19:51)
[2018-10-15] MEDS: Cyanocobalamin (Vitamin B-12) 1,000 MCG TAB PO SCH (09:15)
[2018-10-15] MEDS: Multivitamin W/ Minerals 1 TAB PO SCH (09:15)
[2018-10-15] MEDS: Apixaban 5 MG TAB PO SCH ×2 (09:16→19:51)
[2018-10-15] MEDS: Lisinopril 20 MG TAB PO SCH ×2 (09:16→19:51)
--- NOTE | 2018-10-15 10:36 | PRG ---
DATE OF SERVICE: 10/15/2018 SUBJECTIVE: The patient is a 68-year-old female, undergoing rehabilitation following multiple strokes and seizure. The patient has already worked with Physical Therapy this morning and stated that her leg started to feel tired towards the end of therapy, but overall has done well, and she has had no new spells in the past several days. OBJECTIVE: VITAL SIGNS: Temperature 96.3, pulse 68, respiration rate 18, O2 saturation is 100% on room air, and blood pressure 115/65. GENERAL: The patient is awake, alert, and oriented, in no acute distress. CARDIOVASCULAR: Regular rate and rhythm without murmurs, gallops, or rubs. LUNGS: Clear to auscultation bilaterally without wheezing or rhonchi. ABDOMEN: Soft, nontender, and nondistended. Bowel sounds present. EXTREMITIES: There is no clubbing, cyanosis, or edema. NEUROLOGIC: Cranial nerves 2 through 12 are grossly intact. The patient's strength is 5/5 bilaterally in upper and lower extremities. PSYCHIATRIC: The patient displays appropriate mood and affect. LABORATORY DATA: CBC: WBCs 4.6, hemoglobin 11.7, hematocrit 35.2, and platelets 127. BMP: Sodium 142, potassium 4.5, chloride 106, bicarb 27, BUN 21, creatinine 1.13, glucose 85, and calcium 9.3. ASSESSMENT AND PLAN: 1. Cerebrovascular accident: The patient is progressing with PT and OT. She is continuing a statin, Aggrenox, and Eliquis. Her blood pressure is well controlled. 2. Seizure disorder: Continue Keppra. 3. Acute kidney injury: The patient's creatinine was elevated slightly from last week. We will encourage increased p.o. intake and repeat her labs in a few days. 4. Hypertension: Well controlled. 5. Hyperlipidemia: Continue statin. Job ID: [id number]
[2018-10-15] MEDS: Amlodipine 5 MG TAB PO SCH (19:50)
[2018-10-16] MEDS: Apixaban 5 MG TAB PO SCH ×2 (08:45→20:57)
[2018-10-16] MEDS: Aggrenox 200-25mg CAP PO SCH ×2 (08:45→20:58)
[2018-10-16] MEDS: levETIRAcetam 500 MG TAB PO SCH ×2 (08:45→20:58)
[2018-10-16] MEDS: Atorvastatin Calcium 40 MG TAB PO SCH (08:45)
[2018-10-16] MEDS: Cyanocobalamin (Vitamin B-12) 1,000 MCG TAB PO SCH (08:45)
[2018-10-16] MEDS: Lisinopril 20 MG TAB PO SCH ×2 (08:46→20:58)
[2018-10-16] MEDS: Multivitamin W/ Minerals 1 TAB PO SCH (08:46)
[2018-10-16] MEDS: Amlodipine 5 MG TAB PO SCH (20:56)
[2018-10-17] MEDS: Aggrenox 200-25mg CAP PO SCH ×2 (08:30→20:10)
[2018-10-17] MEDS: Atorvastatin Calcium 40 MG TAB PO SCH (08:30)
[2018-10-17] MEDS: Cyanocobalamin (Vitamin B-12) 1,000 MCG TAB PO SCH (08:30)
[2018-10-17] MEDS: Apixaban 5 MG TAB PO SCH ×2 (08:30→20:10)
[2018-10-17] MEDS: Multivitamin W/ Minerals 1 TAB PO SCH (08:31)
[2018-10-17] MEDS: Lisinopril 20 MG TAB PO SCH ×2 (08:31→20:10)
[2018-10-17] MEDS: levETIRAcetam 500 MG TAB PO SCH ×2 (08:31→20:09)
[2018-10-17] MEDS: Amlodipine 5 MG TAB PO SCH (20:08)
[2018-10-18] MEDS: Cyanocobalamin (Vitamin B-12) 1,000 MCG TAB PO SCH (08:22)
[2018-10-18] MEDS: Lisinopril 20 MG TAB PO SCH ×2 (08:22→20:12)
[2018-10-18] MEDS: levETIRAcetam 500 MG TAB PO SCH ×2 (08:23→20:12)
[2018-10-18] MEDS: Aggrenox 200-25mg CAP PO SCH ×2 (08:23→20:11)
[2018-10-18] MEDS: Multivitamin W/ Minerals 1 TAB PO SCH (08:23)
[2018-10-18] MEDS: Apixaban 5 MG TAB PO SCH ×2 (08:23→20:11)
[2018-10-18] MEDS: Atorvastatin Calcium 40 MG TAB PO SCH (08:23)
--- NOTE | 2018-10-18 13:03 | PRG ---
DATE OF SERVICE: 10/18/2018 SUBJECTIVE: The patient is a 68-year-old female, undergoing rehabilitation following multiple strokes and a seizure. The patient states she had a very good weekend. She has had no significant weakness in the right lower extremity. She notes that she was able to work with therapy and was able to walk around and she is looking [place] this [place] with her son to have lunch. OBJECTIVE: VITAL SIGNS: Temp 97, pulse 75, respiratory rate 18, O2 saturation 96% on room air, and blood pressure 120/56. GENERAL: The patient is awake, alert, and oriented, in no acute distress. CARDIOVASCULAR: Regular rate and rhythm without murmurs, gallops, or rubs. LUNGS: Clear to auscultation bilaterally without wheezing or rhonchi. ABDOMEN: Soft, nontender, and nondistended with bowel sounds present. EXTREMITIES: No clubbing, cyanosis, or edema. PSYCHIATRIC: The patient displays an appropriate mood and affect. ASSESSMENT AND PLAN: 1. Cerebrovascular accident: The patient will continue Eliquis and Aggrenox as well as a statin. The patient continues PT and OT. She can go out on pass today with her family. 2. Seizures: The patient is doing well on Keppra. No new seizures. 3. Acute kidney injury: Ordering BMP for tomorrow morning. 4. Hypertension: Well controlled. 5. Hyperlipidemia: Continue statin. Job ID: [id number]
[2018-10-18] MEDS: Amlodipine 5 MG TAB PO SCH (20:11)
[2018-10-19 05:50] LABS: Anion Gap 13 mmol/L (10-20); BUN (Urea Nitrogen) 17 mg/dL (9.8-20.1); Calc. Creatinine Clearance 57 mL/min (70-130); Calcium 9.3 mg/dL (7.8-10.44); Carbon Dioxide 28 mmol/L (23-31); Chloride 106 mmol/L (98-107); Estimated GFR-MDRD 51; Glucose 80 mg/dL (80-115); Potassium 3.8 mmol/L (3.5-5.1); Sodium 143 mmol/L (136-145)
[2018-10-19] MEDS: levETIRAcetam 500 MG TAB PO SCH ×2 (08:12→20:39)
[2018-10-19] MEDS: Multivitamin W/ Minerals 1 TAB PO SCH (08:12)
[2018-10-19] MEDS: Apixaban 5 MG TAB PO SCH ×2 (08:12→20:39)
[2018-10-19] MEDS: Lisinopril 20 MG TAB PO SCH ×2 (08:13→20:39)
[2018-10-19] MEDS: Atorvastatin Calcium 40 MG TAB PO SCH (08:13)
[2018-10-19] MEDS: Cyanocobalamin (Vitamin B-12) 1,000 MCG TAB PO SCH (08:13)
[2018-10-19] MEDS: Aggrenox 200-25mg CAP PO SCH ×2 (08:14→20:38)
--- NOTE | 2018-10-19 17:40 | PRG ---
DATE OF SERVICE: 10/19/2018 SUBJECTIVE: The patient is a 68-year-old female, undergoing rehabilitation. The patient states that she did well when she went out with her son yesterday. She does note that her right leg does fatigue after working on and she is able to recognize it a lot sooner. Per Physical Therapy, she is still needing help with safety cues and remembering to go slowly and be safe with ambulation. OBJECTIVE: VITALS: Temp 97.8, pulse 72, respiration rate 18, O2 saturation 98% on room air, blood pressure 125/60. GENERAL: The patient is awake, alert, oriented, in no acute distress. CARDIOVASCULAR: Regular rate and rhythm without murmurs, gallops, or rubs. LUNGS: Clear to auscultation bilaterally without wheezing or rhonchi. ABDOMEN: Soft, nontender, nondistended with bowel sounds present. EXTREMITIES: No clubbing, cyanosis, or edema. PSYCHIATRIC: The patient displays appropriate mood and affect. MUSCULOSKELETAL: Muscle strength is 5/5 in the right lower extremity. LABS: BMP: Sodium 143, potassium 3.8, chloride 106, bicarb 28, BUN 17, creatinine 1.07, glucose 80, calcium 9.3. ASSESSMENT AND PLAN: 1. Cerebrovascular accident: The patient is improving with therapy and would benefit from additional therapy. Started to discuss discharge planning with the patient. If she does go home, she is going to need somebody with her 24 hours a day. Trash Collector Truck Driver will be helping us for arrange discharge. 2. Seizure disorder: Doing well on Keppra. 3. Acute kidney injury: The patient's creatinine has improved. We will monitor this periodically. 4. Hypertension: Well controlled. 5. Hyperlipidemia. Continue statin. Job ID: [id number]
[2018-10-19] MEDS: Amlodipine 5 MG TAB PO SCH (20:39)
[2018-10-20] MEDS: Apixaban 5 MG TAB PO SCH ×2 (08:42→20:00)
[2018-10-20] MEDS: Aggrenox 200-25mg CAP PO SCH ×2 (08:42→20:00)
[2018-10-20] MEDS: Cyanocobalamin (Vitamin B-12) 1,000 MCG TAB PO SCH (08:42)
[2018-10-20] MEDS: Atorvastatin Calcium 40 MG TAB PO SCH (08:42)
[2018-10-20] MEDS: Lisinopril 20 MG TAB PO SCH ×2 (08:43→20:00)
[2018-10-20] MEDS: levETIRAcetam 500 MG TAB PO SCH ×2 (08:43→20:00)
[2018-10-20] MEDS: Multivitamin W/ Minerals 1 TAB PO SCH (08:43)
[2018-10-20] MEDS: Amlodipine 5 MG TAB PO SCH (19:59)
--- NOTE | 2018-10-20 22:14 | PRG ---
DATE OF SERVICE: 10/20/2018 SUBJECTIVE: The patient is a 68-year-old female, undergoing rehabilitation. The patient states that she has had a good day. She states her right leg began to tire after therapy, but overall she is feeling really well. OBJECTIVE: VITAL SIGNS: Temperature 98.7, pulse 85, respiratory rate 16, O2 saturation 97% on room air, blood pressure 126/62. GENERAL: The patient is awake, alert, oriented, and in no acute distress. CARDIOVASCULAR: Regular rate and rhythm without murmurs, gallops, or rubs. LUNGS: Clear to auscultation bilaterally without wheezing or rhonchi. ABDOMEN: Soft, nontender, nondistended. Bowel sounds are present. EXTREMITIES: There is no clubbing, cyanosis, or edema. PSYCHIATRIC: The patient displays appropriate mood and affect. ASSESSMENT AND PLAN: 1. Cerebrovascular accident: The patient is continuing physical therapy. It has been recommended that she have 24-hour care at home. I will coordinate this discharge and I anticipate that will be next Thursday. She states that she does have a friend who will be staying at home with her 24 hours a day. She will need home health with physical therapy. 2. Seizure disorder: Continue Keppra. 3. Hypertension: Blood pressure is well controlled. 4. Hyperlipidemia: Continue statin. 5. Acute kidney injury, resolved. Job ID: [id number]
[2018-10-21] MEDS: Apixaban 5 MG TAB PO SCH ×2 (08:04→21:08)
[2018-10-21] MEDS: Aggrenox 200-25mg CAP PO SCH ×2 (08:04→21:06)
[2018-10-21] MEDS: Lisinopril 20 MG TAB PO SCH ×2 (08:04→21:06)
[2018-10-21] MEDS: Atorvastatin Calcium 40 MG TAB PO SCH (08:04)
[2018-10-21] MEDS: levETIRAcetam 500 MG TAB PO SCH ×2 (08:05→21:06)
[2018-10-21] MEDS: Multivitamin W/ Minerals 1 TAB PO SCH (08:05)
[2018-10-21] MEDS: Cyanocobalamin (Vitamin B-12) 1,000 MCG TAB PO SCH (08:05)
[2018-10-21] MEDS: Amlodipine 5 MG TAB PO SCH (21:08)
[2018-10-22 05:53] LABS: Hemoglobin 11.6 g/dL (12.0-16.0); Platelet Count 134 thou/uL (130-400)
[2018-10-22] MEDS: Lisinopril 20 MG TAB PO SCH ×2 (09:34→20:37)
[2018-10-22] MEDS: levETIRAcetam 500 MG TAB PO SCH ×2 (09:34→20:37)
[2018-10-22] MEDS: Aggrenox 200-25mg CAP PO SCH ×2 (09:34→20:37)
[2018-10-22] MEDS: Atorvastatin Calcium 40 MG TAB PO SCH (09:34)
[2018-10-22] MEDS: Cyanocobalamin (Vitamin B-12) 1,000 MCG TAB PO SCH (09:34)
[2018-10-22] MEDS: Apixaban 5 MG TAB PO SCH ×2 (09:34→20:38)
[2018-10-22] MEDS: Multivitamin W/ Minerals 1 TAB PO SCH (09:34)
[2018-10-22] MEDS: Amlodipine 5 MG TAB PO SCH (20:38)
[2018-10-23] MEDS: Aggrenox 200-25mg CAP PO SCH ×2 (09:17→20:39)
[2018-10-23] MEDS: Multivitamin W/ Minerals 1 TAB PO SCH (09:17)
[2018-10-23] MEDS: Cyanocobalamin (Vitamin B-12) 1,000 MCG TAB PO SCH (09:17)
[2018-10-23] MEDS: Apixaban 5 MG TAB PO SCH ×2 (09:17→20:40)
[2018-10-23] MEDS: Lisinopril 20 MG TAB PO SCH ×2 (09:17→20:39)
[2018-10-23] MEDS: Atorvastatin Calcium 40 MG TAB PO SCH (09:17)
[2018-10-23] MEDS: levETIRAcetam 500 MG TAB PO SCH ×2 (09:17→20:40)
--- NOTE | 2018-10-23 17:02 | PRG ---
DATE OF SERVICE: 10/23/2018 SUBJECTIVE: The patient is a 68-year-old female, undergoing rehabilitation following stroke and seizure. In the last 24 hours, the patient's blood pressure has been lower than normal. She feels a little bit tired this morning and her blood pressure medication has been held this morning. OBJECTIVE: VITAL SIGNS: Temperature 98.3, pulse 77, respiratory rate 18, O2 saturation 96% on room air, and blood pressure 106/64. GENERAL: The patient is awake, alert, oriented, in no acute distress. CARDIOVASCULAR: Regular rate and rhythm without murmurs, gallops, or rubs. LUNGS: Clear to auscultation bilaterally without wheezing or rhonchi. ABDOMEN: Soft, nontender, nondistended. Bowel sounds present. EXTREMITIES: There is no clubbing, cyanosis, or edema. NEUROLOGIC: Cranial nerves 2 to 12 are grossly intact. Sensation is within normal limits. Muscle strength 5/5 throughout. ASSESSMENT AND PLAN: 1. Cerebrovascular accident: The patient will continue her statin, Eliquis, and Aggrenox. She has done well with physical therapy and the plan is to discharge on Thursday with home health. 2. Seizure disorder. Continue Keppra. 3. Hypotension: The patient's blood pressure has been borderline low, but she has no signs of infection. She is not tachycardic. She does not have a fever and isn't complaining of anything. We will monitor her blood pressure and may need to adjust the dosages of her medication. 4. Hyperlipidemia: Continue statin. Job ID: [id number]
[2018-10-23] MEDS: Amlodipine 5 MG TAB PO SCH (20:39)
[2018-10-24 06:06] VITALS: BMI 259269.8
[2018-10-24] MEDS: Atorvastatin Calcium 40 MG TAB PO SCH (09:08)
[2018-10-24] MEDS: Multivitamin W/ Minerals 1 TAB PO SCH (09:08)
[2018-10-24] MEDS: Cyanocobalamin (Vitamin B-12) 1,000 MCG TAB PO SCH (09:08)
[2018-10-24] MEDS: Aggrenox 200-25mg CAP PO SCH ×2 (09:08→20:51)
[2018-10-24] MEDS: levETIRAcetam 500 MG TAB PO SCH ×2 (09:09→20:51)
[2018-10-24] MEDS: Lisinopril 20 MG TAB PO SCH ×2 (09:09→20:51)
[2018-10-24] MEDS: Apixaban 5 MG TAB PO SCH ×2 (09:09→20:52)
[2018-10-24] MEDS: Amlodipine 5 MG TAB PO SCH (20:52)
[2018-10-25 07:40] VITALS: TEMP 97.8
[2018-10-25] MEDS: Aggrenox 200-25mg CAP PO SCH (09:08)
[2018-10-25] MEDS: Apixaban 5 MG TAB PO SCH (09:08)
[2018-10-25] MEDS: Lisinopril 20 MG TAB PO SCH (09:09)
[2018-10-25] MEDS: levETIRAcetam 500 MG TAB PO SCH (09:09)
[2018-10-25] MEDS: Cyanocobalamin (Vitamin B-12) 1,000 MCG TAB PO SCH (09:09)
[2018-10-25] MEDS: Atorvastatin Calcium 40 MG TAB PO SCH (09:09)
[2018-10-25] MEDS: Multivitamin W/ Minerals 1 TAB PO SCH (09:10)
[2018-10-25 12:29] VITALS: BP 145/69
--- NOTE | 2018-10-25 13:15 | DIS ---
DATE OF ADMISSION: 09/28/2018 DATE OF DISCHARGE: 10/25/2018 DISCHARGE DIAGNOSES: 1. Cerebrovascular accident. 2. Seizures. 3. Acute kidney injury, resolved. 4. Hypertension. 5. Hyperlipidemia. HOSPITAL COURSE: The patient is a 68-year-old female, who was transferred from [facility] to [facility] for rehabilitation following multiple strokes and a seizure. The patient worked with speech and physical therapy and occupational therapy during her time here. She was able to advance from thickened liquids to regular thin liquids. The patient had right lower extremity weakness that intermittently worsened, but this overall slowly improved during her course here. She is able to get up and ambulate, has practiced going up and down stairs as well. The patient is safe for discharge, so it was recommended the patient have somebody with her 24 hours a day just due to the right lower extremity weakness. She plans on having a friend live with her to help with this. The patient is being discharged in stable condition. DISCHARGE MEDICATIONS: 1. Amlodipine 10 mg p.o. at bedtime. 2. Eliquis 5 mg p.o. b.i.d. 3. Lipitor 40 mg p.o. at bedtime. 4. Vitamin B12 of 1000 mcg p.o. daily. 5. Aggrenox 1 capsule p.o. b.i.d. 6. Multivitamin p.o. daily. 7. Keppra 500 mg p.o. b.i.d. 8. Lisinopril 10 mg p.o. b.i.d. DISPOSITION: 1. The patient will be discharged home in stable condition. 2. Diet, heart healthy. 3. Activity, ad quinton. 4. The patient will have home health with nursing home and PT. 5. The patient is to follow up with her rustic fence builder to examine her LINQ recorder as an outpatient. Also follow up with her PCP. Job ID: [id number]
== END 2018-10-25 10:49 | disposition home health service (06) | DRG 57 ==
LOC: NAV ACUTE 17:10
PROVIDERS: ADMIT Family Medicine; ATTEND Family Medicine
DX: I69.391 Dysphagia following cerebral infarction (principal); N17.9 Acute kidney failure, unspecified; I69.351 Hemiplegia and hemiparesis following cerebral infarction affecting right dominant side; I10 Essential (primary) hypertension; E03.9 Hypothyroidism, unspecified; E78.5 Hyperlipidemia, unspecified; R13.10 Dysphagia, unspecified; R26.89 Other abnormalities of gait and mobility; Z90.49 Acquired absence of other specified parts of digestive tract; Z90.89 Acquired absence of other organs; Z79.899 Other long term (current) drug therapy; I69.398 Other sequelae of cerebral infarction; R56.9 Unspecified convulsions
CPT/HCPCS: 36415; 80048; 80177; 82565; 84439; 84443; 85014; 85018; 85025; 85049; Q0162

== ENCOUNTER 2020-03-30 03:56 | Emergency (ER) | payer MEDICARE ==
[2020-03-30] MEDS ORDERED: Acetaminophen 500 MG TAB ONE (04:24)
[2020-03-30] MEDS ORDERED: TETANUS, DIPHTHERIA TOX,ADULT (TDVAX) 0.5 ML VIAL IM ONE (04:27)
[2020-03-30 04:38] LABS: %Eosinophils 4.9 % (0.0-10.0); %Lymphocytes 21.5 % (21.0-51.0); %Neutrophils 66.1 % (42.0-75.0); Hemoglobin 11.5 g/dL (12.0-16.0); Manual Diff?? NO; Mean Corpuscular HGB CONC 33.2 g/dL (32.0-36.0); Mean Corpuscular Hemoglobin 29.9 pg (27.0-31.0); Mean Corpuscular Volume 90.1 fL (78.0-98.0); Mean Platelet Volume 8.2 fL (7.4-10.4); Platelet Count 135 thou/uL (130-400); Red Blood Cell (RBC) Count 3.83 mill/uL (4.20-5.40); White Blood Cell (WBC) Count 5.6 thou/uL (4.8-10.8)
[2020-03-30 04:39] LABS: #Eosinphils 0.3 thou/uL (0.0-0.7); #Lymphocytes 1.2 thou/uL (1.20-3.40); #Monocytes 0.4 thou/uL (0.11-0.59); #Neutrophils 3.7 thou/uL (1.40-6.50); %Basophils 0.5 % (0.0-1.0)
[2020-03-30 04:47] LABS: Anion Gap 12 mmol/L (10-20); BUN (Urea Nitrogen) 18 mg/dL (9.8-20.1); Calc. Creatinine Clearance 0 mL/min (70-130); Calcium 9.1 mg/dL (7.8-10.44); Chloride 105 mmol/L (98-107); Glucose 93 mg/dL (80-115); Potassium 3.8 mmol/L (3.5-5.1); Sodium 141 mmol/L (136-145)
[2020-03-30 04:50] LABS: Carbon Dioxide 28 mmol/L (23-31)
--- NOTE | 2020-03-30 08:06 | RAD ---
EXAM: 2 views of the right tibia/fibula HISTORY: Right leg pain after fall one week ago COMPARISON: None FINDINGS: There is no evidence of acute fracture or dislocation. Moderate diffuse soft tissue swellin g is seen. No degenerative changes are seen in the knee or ankle. IMPRESSION: No evidence of acute osseous abnormality.
== END 2020-03-30 05:15 | disposition home or self-care (01) ==
LOC: NAV ERS 03:56
DX: S80.01XA Contusion of right knee, initial encounter (principal); S80.11XA Contusion of right lower leg, initial encounter; D68.9 Coagulation defect, unspecified; Z79.01 Long term (current) use of anticoagulants; Z23 Encounter for immunization; W19.XXXA Unspecified fall, initial encounter
CPT/HCPCS: 80048; 85025; 90471; 90714

== ENCOUNTER 2023-11-25 07:58 | Emergency (ER) | payer MEDICARE | END 2023-11-25 08:50 | disposition home or self-care (01) | LOC: NAV ERS 07:58 | DX: F41.1 Generalized anxiety disorder (principal); R03.0 Elevated blood-pressure reading, without diagnosis of hypertension; I10 Essential (primary) hypertension; E78.5 Hyperlipidemia, unspecified; Z79.899 Other long term (current) drug therapy; Z86.73 Personal history of transient ischemic attack (TIA), and cerebral infarction without residual deficits; Z79.01 Long term (current) use of anticoagulants | CPT/HCPCS: 99283 ==

== ENCOUNTER 2024-11-14 07:15 | Emergency (ER) | payer MEDICARE ==
[2024-11-14] MEDS ORDERED: Ondansetron PF 4 MG/2 ML Vial ONE (07:19)
[2024-11-14 07:57] LABS: #Basophils 0.1 thou/uL (0.0-0.2); #Eosinophils 0.0 thou/uL (0.0-0.7); #Lymphocytes 1.3 thou/uL (1.20-3.40); #Monocytes 0.6 thou/uL (0.11-0.59); #Neutrophils 8.6 thou/uL (1.40-6.50); %Basophils 0.7 % (0.0-1.0); %Eosinophils 0.4 % (0.0-10.0); %Lymphocytes 11.9 % (21.0-51.0); %Monocytes 5.3 % (0.0-10.0); %Neutrophils 81.7 % (42.0-75.0); Hematocrit 42.5 % (36.0-47.0); Hemoglobin 15.0 g/dL (12.0-16.0); Mean Corpuscular Hemoglobin 28.9 pg (27.0-31.0); Mean Corpuscular Volume 82.2 fl (78.0-98.0); Platelet Count 136 10x3/uL (130-400); Red Blood Cell (RBC) Count 5.17 mill/uL (4.20-5.40); White Blood Cell (WBC) Count 10.5 10x3/uL (4.8-10.8)
[2024-11-14 08:04] LABS: Troponin I Less than 0.010 ng/mL (< 0.028)
[2024-11-14 08:05] LABS: ALT (SGPT) 7 U/L (Less than 34); AST (SGOT) 17 U/L (11-34); Albumin 3.8 g/dL (3.1-4.5); Alkaline Phosphatase 75 U/L (40-110); Anion Gap 19 mmol/L (10-20); BUN (Urea Nitrogen) 18 mg/dL (9.8-20.1); Bilirubin, Total 1.5 mg/dL (0.3-1.2); Calc. Creatinine Clearance 0 mL/min (70-130); Calcium 9.1 mg/dL (7.8-10.44); Carbon Dioxide 22 mmol/L (23-31); Chloride 103 mmol/L (98-107); Globulin 3.0 g/dL (2.4-3.5); Glucose 189 mg/dL (83-110); Lipase 19 U/L (8-78); Potassium 3.3 mmol/L (3.5-5.1); Sodium 141 mmol/L (136-145)
[2024-11-14] MEDS ORDERED: Iopamidol 370 76% 100 ML VIAL ONE (09:00)
[2024-11-14 10:31] LABS: Glucose, Urine (Dipstick) Negative (Negative); Leukocyte Negative (Negative); Protein, Urine (Dipstick) Negative (Neg-Trace); Specific Gravity, Urine 1.010 (1.005-1.030)
[2024-11-14 10:36] LABS: Bacteria/HPF 2+ HPF (None Seen); CAUTI Indications for Culture Fever or rigors; WBC/HPF 0-3 HPF (0-3)
[2024-11-14 10:38] LABS: Urine Culture Reflex No No
== END 2024-11-14 10:57 | disposition home or self-care (01) ==
LOC: NAV ERS 07:15
DX: A08.4 Viral intestinal infection, unspecified (principal); E86.0 Dehydration; E87.6 Hypokalemia; I10 Essential (primary) hypertension; E78.5 Hyperlipidemia, unspecified; Z55.6 Problems related to health literacy; Z79.01 Long term (current) use of anticoagulants; Z86.73 Personal history of transient ischemic attack (TIA), and cerebral infarction without residual deficits; Z79.899 Other long term (current) drug therapy
CPT/HCPCS: 36415; 74177; 80053; 81001; 83605; 83690; 84484; 85025; 87077; 87086; 93005; 96360; J7120; Q9967